=== PATIENT | male | born 1950 | race Caucasian/White ===

== ENCOUNTER 2018-12-02 09:26 | Day surgery (SDC) | payer BC ==
[~2018-12-02] VITALS: Ht 177.8 cm; Wt 93.1 kg
[~2018-12-02 09:26] MED LIST: HYDACE5 PO; [UNRECOGNIZED DRUG - REMARK]
[2018-12-02] MEDS ORDERED: ASPI81CH (09:55)
== END 2018-12-02 11:35 | disposition home or self-care (01) ==
LOC: ORSCSDS 09:26
PROVIDERS: Surgery
PROC: 0DBM8ZX Excision of Descending Colon, Via Natural or Artificial Opening Endoscopic, Diagnostic (ICD-10-PCS; principal; 2018-12-02 10:45)
DX: Z12.11 Encounter for screening for malignant neoplasm of colon (principal); K63.5 Polyp of colon; K57.30 Diverticulosis of large intestine without perforation or abscess without bleeding; Z86.010 Personal history of colon polyps; I10 Essential (primary) hypertension; E88.81 Metabolic syndrome and other insulin resistance
CPT/HCPCS: 88305; J7120